=== PATIENT | male | born 1950 | race Caucasian/White ===

== ENCOUNTER 2016-08-02 17:07 | Inpatient (IN) | payer MEDICARE, OTHER ==
[2016-08-02] VITALS (8 sets, daily range): BP systolic 90–105; BP diastolic 59–68
[~2016-08-02] VITALS: Ht 185.4 cm; Wt 111.8 kg
[2016-08-02] MEDS ORDERED: OCTREOTIDE 500 MCG in SODIUM CHLORIDE 0.9% 249 ML IV PRN (17:10)
[2016-08-02] MEDS ORDERED: SODIUM CHLORIDE FLUSH 10ML SYR IVF ONE (17:30)
[2016-08-02] MEDS ORDERED: OCTREOTIDE 100MCG/ML, 1ML (0.1MG/ML) IV ONE (17:30)
[2016-08-02] MEDS ORDERED: VALS40TA2 PO (17:46)
[2016-08-02 17:56] LABS: ASPARTATE AMINO TRANSFERASE 15 U/L (15-37); BLOOD UREA NITROGEN 40 mg/dL (7-18)
[2016-08-02] MEDS: PANTOPRAZOLE 80 MG in SODIUM CHLORIDE 0.9% 100 ML IV SCH (18:23)
[2016-08-02] MEDS ORDERED: SODIUM CHLORIDE 0.9%, 500ML IVBOLUS ONE (19:00)
[2016-08-02] MEDS ORDERED: POLYETHYLENE GLYCOL 17 GM PACKET PO PRN (20:30)
[2016-08-02] MEDS ORDERED: DOCUSATE 100 MG CAPSULE PO PRN (20:30)
[2016-08-02] MEDS ORDERED: LABETALOL 5MG/ML, 20ML IV PRN (20:30)
[2016-08-02] MEDS ORDERED: HEPARIN 5,000 UNITS/ML, 1ML SQ SCH (20:30)
[2016-08-02] MEDS ORDERED: BISACODYL 10 MG SUPP PR PRN (20:30)
[2016-08-02] MEDS ORDERED: ONDANSETRON 2MG/ML, 2ML IVP PRN (20:30)
[2016-08-02 23:14] LABS: DIFF TOTAL CELLS COUNTED 100 CELL DIFF
[2016-08-02 23:16] LABS: ANISOCYTOSIS 1+; VERIFY COUNTS? YES
[2016-08-02 23:17] LABS: HYPOCHROMIA 1+; POLYCHROMASIA 1+
[2016-08-03] MEDS: LACTULOSE 10 GM/15 ML UDC PO SCH ×4 (00:32→20:23)
[2016-08-03] MEDS: SODIUM CHLORIDE 0.9% 1,000 ML IV SCH ×3 (00:32→13:39)
[2016-08-03] MEDS: PANTOPRAZOLE 80 MG in SODIUM CHLORIDE 0.9% 100 ML IV SCH (05:03)
[2016-08-03 06:06] LABS: ASPARTATE AMINO TRANSFERASE 15 U/L (15-37); BLOOD UREA NITROGEN 41 mg/dL (7-18)
[2016-08-03 06:18] LABS: DIFF TOTAL CELLS COUNTED 100 CELL DIFF
[2016-08-03 06:19] LABS: VERIFY COUNTS? YES
[2016-08-03 06:36] VITALS: BP 110/68
[2016-08-03] MEDS ORDERED: EPHEDRINE 50 MG/ML, 1ML ONE (07:49)
[2016-08-03] MEDS ORDERED: PROPOFOL 10 MG/ML, 20ML ONE (07:49)
[2016-08-03] MEDS ORDERED: PHENYLEPHRINE 10 MG/ML ONE (07:49)
[2016-08-03] MEDS ORDERED: EPHEDRINE 50 MG/ML, 1ML IVPush PRN (09:00)
[2016-08-03] MEDS ORDERED: ONDANSETRON 2MG/ML, 2ML IVPush PRN (09:00)
[2016-08-03] MEDS ORDERED: LABETALOL 5MG/ML, 20ML IV PRN ×2 (09:00→20:08)
[2016-08-03] MEDS ORDERED: FENTANYL PF 100 MCG/2ML IV PRN (09:00)
[2016-08-03] MEDS ORDERED: hydrALAzine 20 MG/ML, 1ML IV PRN (09:00)
[2016-08-03] MEDS ORDERED: MAGNESIUM SULFATE PMX 2GM/50ML 50 ML IV ONE (10:30)
[2016-08-03] MEDS ORDERED: SINCALIDE (KINEVAC) 5 MCG ONE (11:35)
[2016-08-03 12:19] LABS: TOTAL IRON BINDING CAPACITY 89 mcg/dL (250-450)
[2016-08-03 12:45] LABS: TRANSFERRIN 83 mg/dL (200-360)
[2016-08-03 13:00] VITALS: BP 110/69
[2016-08-03] MEDS: FOLIC ACID 1 MG TABLET PO SCH (13:13)
[2016-08-03] MEDS: THIAMINE 100MG TABLET PO SCH (13:13)
[2016-08-03] MEDS: PANTOPRAZOLE 40 MG IV IVPush SCH (13:14)
[2016-08-03] MEDS ORDERED: LORazepam 2 MG/ML, 1ML IV PRN ×4 (14:00)
[2016-08-03] MEDS ORDERED: LORazepam 1MG TABLET PO PRN ×4 (14:00)
[2016-08-03] MEDS ORDERED: LORazepam 0.5MG TABLET PO PRN (14:00)
[2016-08-03] MEDS: LORazepam 2 MG/ML, 1ML IV PRN ×3 (14:49→23:11)
[2016-08-03] MEDS ORDERED: CEFTRIAXONE PMX 1GM/50ML 50 ML IV SCH (15:00)
[2016-08-03] MEDS ORDERED: D5%-0.9% NACL+KCL 20MEQ 1,000 ML IV SCH (15:00)
[2016-08-03] MEDS: CHLORDIAZEPOXIDE 5 MG CAPSULE PO SCH ×2 (16:00→20:23)
[2016-08-03] MEDS ORDERED: SODIUM CHLORIDE 0.9% 1,000ML IVBOLUS ONE (17:00)
[2016-08-03 17:22] LABS: ABG COLLECTION SITE RIGHT RADIAL; COLLATERAL CIRCULATION TESTING NORMAL
[2016-08-03 20:11] VITALS: BP 120/73
[2016-08-03] MEDS ORDERED: FUROSEMIDE 40 MG/4 ML IV ONE (20:30)
[2016-08-04] MEDS: PANTOPRAZOLE 40 MG IV IVPush SCH ×2 (02:00→12:14)
[2016-08-04 02:23] LABS: ABG COLLECTION SITE RIGHT RADIAL; COLLATERAL CIRCULATION TESTING NORMAL
[2016-08-04 02:42] VITALS: BP 96/66
[2016-08-04] MEDS ORDERED: METRONIDAZOLE PMX 500MG/100ML 100 ML IV SCH (03:00)
[2016-08-04] MEDS ORDERED: PROPOFOL 100 ML IV PRN (04:01)
[2016-08-04] MEDS ORDERED: LIDOCAINE-MPF 1%, 2ML ENDO PRN (04:30)
[2016-08-04] MEDS ORDERED: SODIUM CHLORIDE 0.9% 1,000ML IVBOLUS ONE (04:30)
[2016-08-04] MEDS ORDERED: SENNOSIDES 8.8 MG/5 ML ORAL SOL NG PRN (04:30)
[2016-08-04] MEDS ORDERED: BISACODYL 10 MG SUPP PR PRN (04:30)
[2016-08-04] MEDS ORDERED: SENNA/DOCUSATE TABLET NG PRN (04:30)
[2016-08-04] MEDS ORDERED: LACTULOSE 20 GM/30 ML UDC NG PRN (04:30)
[2016-08-04] MEDS ORDERED: PHARMACY MAY ADJ FOR RENAL FX MC SCH (04:30)
[2016-08-04] MEDS ORDERED: NOREPINEPHRINE 1 MG/ML, 4ML ONE (04:45)
[2016-08-04] MEDS ORDERED: NOREPINEPHRINE 4 MG in SODIUM CHLORIDE 0.9% 246 ML IV PRN (05:00)
[2016-08-04 05:25] LABS: ASPARTATE AMINO TRANSFERASE 18 U/L (15-37); BLOOD UREA NITROGEN 42 mg/dL (7-18)
[2016-08-04] MEDS: PIPERACILLIN/TAZO/PMX 3.375GM 50 ML IV SCH ×2 (05:40→11:20)
[2016-08-04 05:41] LABS: DIFF TOTAL CELLS COUNTED 100 CELL DIFF
[2016-08-04 05:44] LABS: VERIFY COUNTS? YES
[2016-08-04 05:45] LABS: ANISOCYTOSIS 1+; POLYCHROMASIA 1+
[2016-08-04 06:00] LABS: ABG COLLECTION SITE RIGHT BRACHIAL
[2016-08-04 06:13] LABS: PATH.CAST-FLAG NOT PRESENT; SPERM-FLAG NOT PRESENT; SRC-FLAG NOT PRESENT; XTAL-FLAG NOT PRESENT; YLC-FLAG NOT PRESENT
[2016-08-04] MEDS ORDERED: VASOPRESSIN 100 UNIT in SODIUM CHLORIDE 0.9% 495 ML IV PRN (06:30)
[2016-08-04] MEDS ORDERED: EPINEPHRINE 1 MG/ML, 1ML IVPush ONE (07:50)
[2016-08-04] MEDS ORDERED: PHENYLEPHRINE 10 MG/ML ONE (07:51)
[2016-08-04] MEDS ORDERED: EPINEPHRINE SYRINGE 0.1 MG/ML, 10ML ONE (07:53)
[2016-08-04] MEDS: PHENYLEPHRINE 20 MG in SODIUM CHLORIDE 0.9% 248 ML IV PRN ×3 (07:53→11:00)
[2016-08-04] MEDS ORDERED: SODIUM BICARB 8.4%, 50ML SYRINGE IVPush ONE (08:00)
[2016-08-04] MEDS ORDERED: SODIUM BICARB 8.4%, 50ML SYRINGE ONE (08:01)
[2016-08-04] MEDS ORDERED: SODIUM BICARBONATE 1 MEQ/ML, 50ML VIAL IVPush ONE (08:05)
[2016-08-04 08:30] VITALS: BP 71/38
[2016-08-04] MEDS ORDERED: SODIUM BICARB 8.4%,50ML SYR. 150 MEQ in DEXTROSE 5% 1,000 ML IV SCH (08:30)
[2016-08-04] MEDS: NOREPINEPHRINE 8 MG in SODIUM CHLORIDE 0.9% 242 ML IV PRN ×2 (08:39→11:48)
[2016-08-04 08:55] LABS: ABG COLLECTION SITE NOT DOCUMENTED
[2016-08-04] MEDS: FOLIC ACID 1 MG TABLET PO SCH (09:00)
[2016-08-04] MEDS: LACTULOSE 10 GM/15 ML UDC PO SCH (09:00)
[2016-08-04] MEDS: CHLORDIAZEPOXIDE 5 MG CAPSULE PO SCH (09:00)
[2016-08-04] MEDS ORDERED: MULTIVITAMINS/MINERALS TABLET PO SCH (09:00)
[2016-08-04] MEDS: THIAMINE 100MG TABLET PO SCH (09:00)
[2016-08-04] MEDS ORDERED: HYDROCORTISONE 100 MG INJ. IVPush SCH (10:00)
[2016-08-04] MEDS ORDERED: PHENYLEPHRINE 40 MG in SODIUM CHLORIDE 0.9% 246 ML IV PRN (12:00)
[2016-08-04 12:02] LABS: ABG COLLECTION SITE ARTERIAL LINE
[2016-08-04] MEDS ORDERED: ATROPINE OPHTH SOLN 1%, 2ML PO PRN (13:00)
[2016-08-04] MEDS ORDERED: morphine SULFATE 10 MG/ML, 1ML IV ONE (13:00)
[2016-08-04] MEDS ORDERED: LORazepam 2 MG/ML, 1ML IV ONE (13:00)
[2016-08-04] MEDS ORDERED: morphine SULFATE 10 MG/ML, 1ML IV PRN (13:00)
[2016-08-04] MEDS ORDERED: PROPOFOL 10 MG/ML, 50ML ONE (23:00)
[2016-08-04] MEDS ORDERED: VECURONIUM 10 MG ONE (23:00)
[2016-08-04] MEDS ORDERED: PROPOFOL 10 MG/ML, 20ML ONE (23:00)
== END 2016-08-04 13:32 | disposition expired | DRG 853 ==
LOC: ED 18:16 → EDIP 19:58 → 4EST 20:57 → CCU 08-04 03:00
PROVIDERS: ADMIT Internal Medicine; ATTEND Internal Medicine
PROC: 30233L1 Transfusion of Nonautologous Fresh Plasma into Peripheral Vein, Percutaneous Approach (ICD-10-PCS; 2016-08-02)
PROC: 30233K1 Transfusion of Nonautologous Frozen Plasma into Peripheral Vein, Percutaneous Approach (ICD-10-PCS; 2016-08-02)
PROC: 0T9B70Z Drainage of Bladder with Drainage Device, Via Natural or Artificial Opening (ICD-10-PCS; 2016-08-03)
PROC: 0DB68ZX Excision of Stomach, Via Natural or Artificial Opening Endoscopic, Diagnostic (ICD-10-PCS; 2016-08-03)
PROC: 0DB58ZX Excision of Esophagus, Via Natural or Artificial Opening Endoscopic, Diagnostic (ICD-10-PCS; principal; 2016-08-03 08:00)
PROC: 04HY32Z Insertion of Monitoring Device into Lower Artery, Percutaneous Approach (ICD-10-PCS; 2016-08-04)
PROC: 04H Lower Arteries, Insertion (ICD-10-PCS; 2016-08-04)
PROC: 02HV33Z Insertion of Infusion Device into Superior Vena Cava, Percutaneous Approach (ICD-10-PCS; 2016-08-04)
PROC: B548ZZA Ultrasonography of Superior Vena Cava, Guidance (ICD-10-PCS; 2016-08-04)
PROC: 0B9J8ZX Drainage of Left Lower Lung Lobe, Via Natural or Artificial Opening Endoscopic, Diagnostic (ICD-10-PCS; 2016-08-04)
PROC: 0B9F8ZX Drainage of Right Lower Lung Lobe, Via Natural or Artificial Opening Endoscopic, Diagnostic (ICD-10-PCS; 2016-08-04)
PROC: 5A1935Z Respiratory Ventilation, Less than 24 Consecutive Hours (ICD-10-PCS; 2016-08-04)
PROC: 0BH17EZ Insertion of Endotracheal Airway into Trachea, Via Natural or Artificial Opening (ICD-10-PCS; 2016-08-04)
DX: A41.9 Sepsis, unspecified organism (principal); J69.0 Pneumonitis due to inhalation of food and vomit; G93.41 Metabolic encephalopathy; N17.0 Acute kidney failure with tubular necrosis; E43 Unspecified severe protein-calorie malnutrition; R65.21 Severe sepsis with septic shock; J96.00 Acute respiratory failure, unspecified whether with hypoxia or hypercapnia; D62 Acute posthemorrhagic anemia; E87.1 Hypo-osmolality and hyponatremia; E27.1 Primary adrenocortical insufficiency; K76.6 Portal hypertension; D61.818 Other pancytopenia; Z99.11 Dependence on respirator [ventilator] status; K92.1 Melena; K70.40 Alcoholic hepatic failure without coma; I48.0 Paroxysmal atrial fibrillation; K74.60 Unspecified cirrhosis of liver; I10 Essential (primary) hypertension; E78.5 Hyperlipidemia, unspecified; M10.9 Gout, unspecified; L40.9 Psoriasis, unspecified; F12.90 Cannabis use, unspecified, uncomplicated; E66.9 Obesity, unspecified; E11.9 Type 2 diabetes mellitus without complications; K20.9 Esophagitis, unspecified; Z66 Do not resuscitate; K22.2 Esophageal obstruction; K22.70 Barrett's esophagus without dysplasia; K29.70 Gastritis, unspecified, without bleeding; Z51.5 Encounter for palliative care; Z82.49 Family history of ischemic heart disease and other diseases of the circulatory system; Z68.32 Body mass index [BMI] 32.0-32.9, adult
CPT/HCPCS: 31624; 36415; 36600; 70450; 71010; 74000; 76700; 78227; 80053; 81001; 82140; 82306; 82533; 82607; 82728; 82746; 82803; 82962; 83540; 83550; 83690; 83735; 84439; 84443; 84466; 84478; 85018; 85025; 85610; 85730; 86850; 86900; 87040; 87070; 87077; 87081; 87186; 87205; 87324; 88305; 93005; 94002; 94003; 96365; 96366; 96375; J0171; J0696; J1940; J2354; J2543; J2704; J7070; A9537; C1751; C9113; C9898; J1720; J2060; J2270; J2370; J2805; J3475; J3480; J7030; J7040; J7050; P9017